=== PATIENT | male | born 1960 | race Caucasian/White ===

== ENCOUNTER 2024-10-03 12:30 | Emergency (ER) | payer MEDICARE, OTHER ==
[2024-10-03] MEDS: Sodium Chloride 0.9% 1,000 ML IV ONE (13:20)
[2024-10-03] MEDS: Metoclopramide 10 MG/2 ML SDV IVPUSH ONE (13:20)
[2024-10-03] MEDS: Ketorolac 30 MG/ML SDV IVPUSH ONE (13:20)
[2024-10-03 13:33] LABS: BASOPHILS PERCENT AUTO 0.4 % (0.0-1.0); EOSINOPHILS PERCENT AUTO 0.1 % (0.0-6.0); HEMOGLOBIN 13.7 gm/dl (14.0-18.0); IMMATURE GRAN ABSOLUTE AUTO 0.07 K/mm3 (0.00-0.05); IMMATURE GRAN PERCENT AUTO 0.6 % (0.0-0.4); LYMPHOCYTES ABSOLUTE AUTO 0.7 K/mm3 (1.0-4.8); LYMPHOCYTES PERCENT AUTO 6.4 % (24.0-44.0); MEAN CORPUSCULAR HEMOGLOBIN 31.8 pg (28.0-32.0); MEAN CORPUSCULAR HGB CONC 33.4 g/dl (32.0-36.0); MEAN CORPUSCULAR VOLUME 95.1 fl (83.0-99.0); MEAN PLATELET VOLUME 9.6 fl (9.4-12.4); MONOCYTES ABSOLUTE AUTO 0.5 K/mm3 (0.0-0.8); MONOCYTES PERCENT AUTO 4.2 % (0.0-8.0); NEUTROPHILS ABSOLUTE AUTO 9.8 K/mm3 (1.8-7.7); NEUTROPHILS PERCENT AUTO 88.3 % (41.0-71.0); PLATELET COUNT,PLT 258 K/mm3 (150-400); RED BLOOD CELL COUNT 4.31 M/mm3 (4.52-5.90); WHITE BLOOD CELL COUNT,WBC 11.05 K/mm3 (3.9-11.3)
[2024-10-03 13:42] LABS: A/G RATIO 0.7 (1-2); ALANINE AMINOTRANSFERASE,ALT 32 U/L (16-63); ALKALINE PHOSPHATASE 76 U/L (46-116); ANION GAP 18.4 (5-15); ASPARTATE AMNIOTRANSFERASE,AST 31 U/L (15-37); BILIRUBIN TOTAL 0.6 mg/dL (0.2-1.0); BLOOD UREA NITROGEN,BUN 20 mg/dL (7-18); BUN/CREATININE RATIO 12.5 (14-18); CALCIUM 9.3 mg/dL (8.5-10.1); CARBON DIOXIDE,CO2 24 mEq/L (21-32); CHLORIDE,CL 100 mEq/L (98-107); CREATININE 1.6 mg/dL (0.7-1.3); EST CRCL DRUG DOSING (CG) 53.52 mL/min; ESTIMATED GFR 48 mL/min (>60); GLUCOSE RANDOM 104 mg/dL (70-99); MAGNESIUM 2.2 mg/dL (1.8-2.4); POTASSIUM,K 4.4 mEq/L (3.5-5.1); PROTEIN TOTAL,TP 7.2 g/dl (6.4-8.2); SODIUM,NA 138 mEq/L (136-145)
[2024-10-03 13:48] LABS: C-REACTIVE PROTEIN > 25.00 mg/dL (<0.30)
[2024-10-03] MEDS ORDERED: Naloxone 0.4 MG/ML SDV IVPUSH PRN (14:06)
[2024-10-03] MEDS: fentaNYL 100 MCG/2 ML SDV IVPUSH ONE (14:17)
== END 2024-10-03 15:25 | disposition home or self-care (01) ==
LOC: JD.ED 12:30
DX: G43.801 Other migraine, not intractable, with status migrainosus (principal)
CPT/HCPCS: 36415; 70450; 71045; 80053; 83735; 85025; 85652; 86140; 96361; 96374; 96375; 99284; J1885; J2765; J3010; J7030

== ENCOUNTER 2024-11-06 08:10 | Emergency (ER) | payer MEDICARE, OTHER ==
[2024-11-06 09:18] LABS: BASOPHILS ABSOLUTE AUTO 0.0 K/mm3 (0.0-0.2); BASOPHILS PERCENT AUTO 0.4 % (0.0-1.0); EOSINOPHILS ABSOLUTE AUTO 0.2 K/mm3 (0.0-0.4); EOSINOPHILS PERCENT AUTO 1.7 % (0.0-6.0); IMMATURE GRAN ABSOLUTE AUTO 0.03 K/mm3 (0.00-0.05); IMMATURE GRAN PERCENT AUTO 0.3 % (0.0-0.4); LYMPHOCYTES ABSOLUTE AUTO 1.0 K/mm3 (1.0-4.8); LYMPHOCYTES PERCENT AUTO 10.1 % (24.0-44.0); MEAN PLATELET VOLUME 9.7 fl (9.4-12.4); MONOCYTES ABSOLUTE AUTO 0.7 K/mm3 (0.0-0.8); MONOCYTES PERCENT AUTO 7.2 % (0.0-8.0); NEUTROPHILS ABSOLUTE AUTO 8.2 K/mm3 (1.8-7.7); NEUTROPHILS PERCENT AUTO 80.3 % (41.0-71.0); NRBC ABSOLUTE 0.00 (0.00-0.02); NRBC PERCENT 0.0 % (0.0-0.2); PLATELET COUNT,PLT 322 K/mm3 (150-400); RED BLOOD CELL COUNT 4.03 M/mm3 (4.52-5.90); WHITE BLOOD CELL COUNT,WBC 10.17 K/mm3 (3.9-11.3)
[2024-11-06 09:37] LABS: A/G RATIO 0.7 (1-2); ALANINE AMINOTRANSFERASE,ALT 36.0 U/L (16-63); ASPARTATE AMNIOTRANSFERASE,AST 27.0 U/L (15-37); BILIRUBIN TOTAL 0.4 mg/dL (0.2-1.0); BLOOD UREA NITROGEN,BUN 11.0 mg/dL (7-18); CARBON DIOXIDE,CO2 27.0 mEq/L (21-32); CHLORIDE,CL 101.0 mEq/L (98-107); CREATINE KINASE,CK 17.0 U/L (39-308); CREATININE 1.2 mg/dL (0.7-1.3); EST CRCL DRUG DOSING (CG) 69.36 mL/min; ESTIMATED GFR 67.0 mL/min (>60); GLUCOSE RANDOM 104.0 mg/dL (70-99); POTASSIUM,K 4.1 mEq/L (3.5-5.1); PROTEIN TOTAL,TP 6.6 g/dl (6.4-8.2); SODIUM,NA 135.0 mEq/L (136-145)
== END 2024-11-06 09:45 | disposition home or self-care (01) ==
LOC: JD.ED 08:10
DX: R20.2 Paresthesia of skin (principal); M54.2 Cervicalgia; M54.6 Pain in thoracic spine; Z79.899 Other long term (current) drug therapy
CPT/HCPCS: 36415; 80053; 82550; 83735; 85025; 85652; 86140; 93005; 99284; J7512